=== PATIENT | male | born 1975 | race Hispanic/Latino ===

== ENCOUNTER 2024-07-15 22:07 | Emergency (ER) | payer BC ==
[~2024-07-15] VITALS: Ht 165.1 cm; Wt 88.5 kg
[2024-07-15] MEDS: cePHALexin 500 MG CAPSULE PO ONE (23:35)
[2024-07-15] MEDS: ketOROlac 60 MG VIAL (30MG/ML) IM ONE (23:36)
[2024-07-15] MEDS ORDERED: CEPH500B PO (23:39)
--- NOTE | 2024-07-15 23:39 | ERN ---
ED Note History of Present Illness Stated Complaint: F/O LEFT ANKLE Chief Complaint: Ankle Problem Time Seen by MD: 22:09 Time Seen by Midlevel: 22:09 Dictation: The patient is a 5-year-old male with no past medical history who presents to the emergency department with complaints of left ankle pain after a cactus thorn went in to Skin onset today around 1:00 p.m.. Patient reports he removed the thorn but is concerned that there is still a piece of thorn embedded in his skin.. Patient reports up-to-date with Tdap Allergies: Coded Allergies: No Known Allergies (Unverified Allergy, Unknown, 07/15/24) Past Medical History Past Medical History: No Pertinent History Surgical History: None RN Note Reviewed/Agreed w/PFSH: Yes Review of System Dictation Constitutional: Negative for fever,chills, and weight loss Eyes: Negative for injury, pain,redness, and discharge ENT: Negative for injury,pain or swelling Cardiovascular: Negative for chest pain, palpitations, and edema Respiratory: Negative for shortness of breath, cough, and wheezing, Abdomen/GI: Negative for abdominal pain, nausea, vomiting, diarrhea, and constipation Back: Negative for injury and pain : Negative for injury, bleeding and discharge MS/Extremity: Negative for injury and deformity Skin: Negative for rash, and discoloration. Positive for thorn puncture wound Neuro: Negative for headache, weakness, numbness, tingling, and seizure Psych: Negative for suicide ideation, homicidal ideation, and hallucinations Initial Vital Sign VS Vital Signs Date Time Temp Pulse Resp B/P (MAP) Pulse Ox O2 Delivery O2 Flow Rate FiO2 07/15/24 22:09 97.5 66 16 142/77 99 Room Air Physical Exam Dictation Vital Signs reviewed General Appearance: Alert, oriented x 3, no acute distress, well developed, nourished. Head and Face: non-traumatic. Eyes: PERRL, pink conjunctivas, eyelid no trauma, anterior chamber with arcus senilis. Ears: Pinnas intact and no signs of trauma or erythema ear canals clear and no discharge TM no erythema Nose: No discharge, no bleeding. Oropharynx: Mouth normal, tongue pink. pharynx clear,no erythema, tonsils no exudates, no abscesses noted, mucous membrane moist Neck: Supple, non-tender, no thyromegaly, no masses, no JVD, no bruits Breast:Deferred Chest:No tenderness, no crepitus, no paradoxical movement, no retractions Lungs:Clear, well-ventilated, symmetric, no rales, no wheezing, no rhonchi, no stridor, good breath sounds bilaterally Heart: Regular rate, regular rhythm, no murmur, no gallops Vascular: no peripheral edema, Abdomen: Soft, positive bowel sounds, nondistended, no guarding, nontender, no rebound, no masses no hepatomegaly, no splenomegaly, no Perez's sign, no hernias. Rectal: Deferred Genital: Deferred Neurological: Normal speech, motor function intact, sensory function intact Musculoskeletal: Neck nontender, full range of motion, back nontender, full range of motion, Extremities: nontender, full range of motion Skin: Color pink, dry, no turgor, no rash, no lacerations, no abrasions, no contusions. Small puncture wound lateral left ankle, minimal swelling, slight erythema Lymphatic: Deferred Results (Laboratory/Radiology) Labs Reviewed?: Yes ED Course ED Course Orders Procedure Category Date Status Time Ankle Comp 3vws Lt RAD 07/15/24 Taken 22:09 Ketorolac 60mg/2ml PHA 07/15/24 Complete (Toradol 60mg/2ml) 23:30 Cephalexin 500 Mg PHA 07/15/24 In Process Capsule (Keflex 500 Mg 23:30 Current Medications Medications (Trade) Dose Ordered Sig/Quyen Route PRN Reason Start Time Stop Time Status Last Admin Dose Admin Cephalexin (Keflex 500 MG CAPS) 500 mg ONCE ONCE PO 07/15/24 23:30 07/15/24 23:31 Ketorolac Tromethamine (toRADol 60MG/ 2ML) 60 mg ONCE ONCE IM 07/15/24 23:30 07/15/24 23:31 Vital Signs Date Time Temp Pulse Resp B/P (MAP) Pulse Ox O2 Delivery O2 Flow Rate FiO2 07/15/24 22:09 97.5 66 16 142/77 99 Room Air Medical Decision Making MDM The patient is a 5-year-old male with no past medical history who presents to the emergency department with complaints of left ankle pain after a cactus thorn went in to Skin onset today around 1:00 p.m.. Patient reports he removed the thorn but is concerned that there is still a piece of thorn embedded in his skin.. Patient reports up-to-date with Tdap No obvious foreign body identified on x-ray. Patient will be treated with the antibiotics prophylactic. Patient instructed to follow up with PCP. Differential diagnosis: Cellulitis, foreign body on ankle, abscess Need for hospitalization: Patient does not meet criteria for hospitalization. There are no social concerns with this patient. DX & DISP Disposition: Discharge Departure Impression: Primary Impression: Puncture wound of ankle, left Condition: Stable Scripts Cephalexin Monohydrate (Keflex) 500 Mg Cap 500 MG PO QID for 5 Days, #20 CAP Prov: BARBOZA,RADHA PINEDA 07/15/24 Additional Instructions: Please follow up with PCP in 1-2 days. Please take medications as prescribed. Monitor for any signs of infection like a erythema, drainage, fevers. If symptoms develop please follow up with PCP or return to ER FOLLOW-UP WITH PRIMARY CARE PROVIDER IN 1 TO 2 DAYS. TAKE MEDICATIONS DIRECTED HERE IN THE EMERGENCY ROOM. OKAY TO CONTINUE HOME MEDICATIONS UNLESS OTHERWISE DISCUSSED DURING YOUR VISIT IN THE EMERGENCY ROOM TODAY. RETURN TO YOUR NEAREST EMERGENCY ROOM IF SYMPTOMS WORSEN OR IF THERE IS NO IMPROVEMENT. CALL 911 IF YOU NEED IMMEDIATE ASSISTANCE. TAKE TYLENOL OR MOTRIN [id number] NEEDED AND IF NO CONTRAINDICATIONS ARE PRESENT. INCREASE ORAL HYDRATION. A WOUND CULTURE OR URINE CULTURE WAS ORDERED HERE IN THE EMERGENCY ROOM DEPARTMENT PLEASE FOLLOW-UP WITH PRIMARY CARE PROVIDER AND ADVISE THEM TO GET REPEAT PORTS FROM OUR FACILITY. IF YOU HAD ANY TRENT WRAP/SPLINTS THAT WERE APPLIED HERE, PLEASE DO NOT REMOVE THEM UNTIL YOU SEE YOUR PRIMARY CARE OR SPECIALTY. Referrals: XOCHILT GRAY (PCP) Time of Disposition: 23:37 I have reviewed the case, and I agree with, Diagnosis and Plan RADHA BARBOZA FOOD SERVICE ASSISTANT Jul 15, 2024 23:39
[2024-07-15 23:54] VITALS: BP 139/74; PULSE 67; RESP 18; TEMP 98.6; O2SAT 98
--- NOTE | 2024-07-16 00:17 | HMCIMG ---
ANKLE COMP 3VWS LT HISTORY: Possible foreign body to left lateral ankle COMPARISON: None TECHNIQUE: 3 images of left ankle were obtained. FINDINGS: There is no acute displaced fracture or dislocation. There is soft tissue swelling. No evidence of radiopaque foreign body is seen. There is calcification noted at the incision site of the Achilles tendon consistent with enthesopathy. Degenerative changes are seen. IMPRESSION: 1. Findings as described above.
== END 2024-07-15 23:56 | disposition home or self-care (01) ==
LOC: EDH 22:07
DX: S91.03 Puncture wound without foreign body of ankle (principal); W60.XXXA Contact with nonvenomous plant thorns and spines and sharp leaves, initial encounter; Y93.89 Activity, other specified; Y92.89 Other specified places as the place of occurrence of the external cause; Y99.8 Other external cause status
CPT/HCPCS: 99284; 73610; 96372; J1885